=== PATIENT | male | born 1940 | race Caucasian/White ===

== ENCOUNTER 2018-02-12 01:50 | Inpatient (IN) | payer MEDICARE ==
[~2018-02-12] VITALS: Ht 188 cm; Wt 83.9 kg
[~2018-02-12 01:50] MED LIST: ASPIRIN325 MG PO; BRILINTA90 MG PO; CARAFATE1 G PO; FERROUS SULFAT325 MG PO; FLOMAX0.4 MG PO; NITROSTAT0.4 MG SL; NORVASC10 MG PO; PLAVIX75 MG PO; PRAVACHOL20 MG PO; PROTONIX40 MG PO; ZESTORETIC 20-1 EACH PO
[2018-02-12] MEDS ORDERED: FERROUS SULFAT325 MG PO (01:56)
[2018-02-12] MEDS ORDERED: FLUTICASONE PRO16 GM NASAL (01:57)
[2018-02-12] MEDS ORDERED: NIZORAL 2 % CRE15 GM TOPICAL (01:58)
[2018-02-12] MEDS ORDERED: LISINOPRIL-HCTZ1 T11 PO (01:58)
[2018-02-12] MEDS ORDERED: ALAVERT10 MG/TAB PO (01:58)
[2018-02-12 02:42] LABS: BASOPHILS 0.3 % (0-2); EOSINOPHILS 0.8 % (0-7); HEMATOCRIT 34.1 % (42.0-54.0); HEMOGLOBIN 11.3 g/dL (13.5-17.5); IMMATURE GRANULOCYTES 0.2 % (0-5); MCH 28.5 pg (26.0-34.0); MCHC 33.1 g/dL (31.0-37.0); MCV 85.9 fL (80.0-100.0); MEAN PLATELET VOLUME 8.3 fL (7.4-10.4); MONOCYTES 10.2 % (2-11); NEUTROPHILS 69.5 % (40-80); PLATELET COUNT 302 10x3/uL (130-400); RBC 3.97 10x6/uL (4.20-6.10); RDW 15.8 % (11.5-14.5); WBC 6.3 10x3/uL (4.8-10.8)
[2018-02-12 02:54] LABS: INR 0.93 (0.85-1.17); PROTIME 12.1 SECONDS (11.6-15.0)
[2018-02-12 02:56] LABS: ALBUMIN 3.2 g/dL (3.4-5.0); ANION GAP 12.6 mmol/L (8-16); BILIRUBIN - TOTAL 5.62 mg/dL (0.2-1.3); CALCIUM 8.2 mg/dL (8.5-10.1); CARBON DIOXIDE 26.3 mmol/L (21.0-32.0); CREATININE - SERUM 1.1 mg/dL (0.6-1.3); POTASSIUM - SERUM 2.9 mmol/L (3.5-5.1); PROTEIN - SERUM 7.1 g/dL (6.4-8.2)
[2018-02-12] MEDS ORDERED: NORVASC5 MG PO (04:02)
[2018-02-12 04:34] VITALS: BP 115/47; BMI 23.8
[2018-02-12 05:13] VITALS: BP 115/47
[2018-02-12 08:20] VITALS: BP 133/60
[2018-02-12 10:35] LABS: % SATURATION 6 % (15-55); IRON 24 ug/dl (35-150); TOTAL IRON BIND CAPACITY 361 ug/dl (260-445); UNSAT IRON BIND CAPACITY 337 ug/dl (150-375)
[2018-02-12 11:51] VITALS: BP 102/53
[2018-02-12 13:15] VITALS: Ht 188 cm; Wt 83.9 kg
[2018-02-12 15:52] VITALS: BP 101/49
[2018-02-12 20:52] VITALS: BP 125/54
[2018-02-13 04:22] VITALS: BP 154/60
[2018-02-13 05:25] LABS: BASOPHILS 0.4 % (0-2); EOSINOPHILS 1.8 % (0-7); HEMATOCRIT 29.4 % (42.0-54.0); HEMOGLOBIN 9.7 g/dL (13.5-17.5); IMMATURE GRANULOCYTES 0.2 % (0-5); LYMPHOCYTES 20.4 % (15-50); MEAN PLATELET VOLUME 8.9 fL (7.4-10.4); MONOCYTES 10.9 % (2-11); NEUTROPHILS 66.3 % (40-80); PLATELET COUNT 273 10x3/uL (130-400); RBC 3.46 10x6/uL (4.20-6.10); RDW 16.1 % (11.5-14.5); WBC 4.5 10x3/uL (4.8-10.8)
[2018-02-13 05:50] LABS: ALBUMIN 2.4 g/dL (3.4-5.0); ALKALINE PHOSPHATASE 444 U/L (46-116); ALT (SGPT) 709 U/L (10-68); BILIRUBIN - TOTAL 5.13 mg/dL (0.2-1.3); CALC OSMOLALITY 281 mosm/kg (275-300); CALCIUM 7.5 mg/dL (8.5-10.1); CHLORIDE - SERUM 105 mmol/L (98-107); CREATININE - SERUM 0.9 mg/dL (0.6-1.3); GLUCOSE 111 mg/dL (74-106); MAGNESIUM - SERUM 1.8 mg/dL (1.8-2.4); PHOSPHOROUS 2.1 mg/dL (2.5-4.9); POTASSIUM - SERUM 3.4 mmol/L (3.5-5.1); PROTEIN - SERUM 5.8 g/dL (6.4-8.2); SODIUM 139 mmol/L (136-145); UREA NITROGEN 20 mg/dL (7-18); eGFR NON AFRICAN AMERICAN 87 mL/min (90-120)
[2018-02-13 07:28] LABS: HEPATITIS C ANTIBODY <0.1 (0.0-0.9)
[2018-02-13 08:19] LABS: FOLATE (FOLIC ACID) - SERUM >20.0 ng/mL (>3.0)
[2018-02-13 08:48] VITALS: BP 136/60
[2018-02-13 10:20] LABS: CA125 10.8 U/mL (Not Estab.)
[2018-02-13 12:45] VITALS: BP 117/64; BP 125/57
[2018-02-13 16:57] VITALS: BP 131/54
[2018-02-13 20:00] VITALS: BP 93/67
[2018-02-14 01:02] VITALS: BP 112/64
[2018-02-14 05:58] LABS: PHOSPHOROUS 2.6 mg/dL (2.5-4.9); POTASSIUM - SERUM 3.5 mmol/L (3.5-5.1)
[2018-02-14 07:54] LABS: ALBUMIN 2.5 g/dL (3.4-5.0); ALKALINE PHOSPHATASE 485 U/L (46-116); ALT (SGPT) 712 U/L (10-68); BILIRUBIN - TOTAL 5.84 mg/dL (0.2-1.3); CALC OSMOLALITY 278 mosm/kg (275-300); CALCIUM 7.4 mg/dL (8.5-10.1); CARBON DIOXIDE 22.6 mmol/L (21.0-32.0); CHLORIDE - SERUM 104 mmol/L (98-107); CREATININE - SERUM 0.9 mg/dL (0.6-1.3); GLUCOSE 101 mg/dL (74-106); POTASSIUM - SERUM 3.5 mmol/L (3.5-5.1); PROTEIN - SERUM 5.5 g/dL (6.4-8.2); SODIUM 139 mmol/L (136-145); UREA NITROGEN 16 mg/dL (7-18); eGFR NON AFRICAN AMERICAN 87 mL/min (90-120)
[2018-02-14 08:54] VITALS: BP 133/61
[2018-02-14 12:28] VITALS: BP 128/59
[2018-02-14] MEDS ORDERED: ZOFRAN ODT4 MG/UDTAB PO (13:26)
[2018-02-14] MEDS ORDERED: PERCOCET 5-3251 TAB PO (13:31)
[2018-02-18 03:10] LABS: CHENODEOXYCHOLIC ACID 118 umol/L (()); CHOLIC ACID 160 umol/L (()); TOTAL BILE ACIDS 279 umol/L (()); URSODEOXYCHOLIC ACID 1.5 umol/L (())
== END 2018-02-14 15:14 | disposition home or self-care (01) | DRG 437 ==
LOC: D.ER 01:50 → D.EDHOLD 02:21 → D.MS 02:21
PROVIDERS: Family Medicine; Internal Medicine Gastroenterology; Internal Medicine Nephrology
DX: C22.1 Intrahepatic bile duct carcinoma (principal); R91.8 Other nonspecific abnormal finding of lung field; I12.9 Hypertensive chronic kidney disease with stage 1 through stage 4 chronic kidney disease, or unspecified chronic kidney disease; N18.3 Chronic kidney disease, stage 3 (moderate); Z87.891 Personal history of nicotine dependence; E87.6 Hypokalemia; D29.1 Benign neoplasm of prostate; D64.9 Anemia, unspecified; E78.5 Hyperlipidemia, unspecified; Z85.51 Personal history of malignant neoplasm of bladder; R63.0 Anorexia; L29.9 Pruritus, unspecified; Z68.23 Body mass index [BMI] 23.0-23.9, adult

== ENCOUNTER 2018-05-17 17:45 | Observation (INO) | payer MEDICARE ==
[~2018-05-17] VITALS: Ht 188 cm; Wt 61.4 kg
--- NOTE | ~2018-05-17 | MORECARE ---
CASE MANAGEMENT DISCHARGE SUMMARY PATIENT: CHRISTI COSTA V UNIT: [id number] ADM DATE: 05/17/18 AGE: 78 : 39 SEX: M ROOM/BED: D.2120 AUTHOR: KEILA MCCORMICK PHYSICIAN: REFERRING PHYSICIAN: CHLOE FORDE MD DATE OF SERVICE: 05/19/18 Discharge Plan Patient Name: CHRISTI COSTA [facility] [facility] 1940 Planned Disposition: Home Anticipated Discharge Date: 05/18/18 Discharge Date: 05/18/2018 Expected LOS: 1 Initial Reviewer: [email or web address] Initial Review Date: 05/19/2018 Generated: 05/19/18 12:36 pm Patient Name: CHRISTI COSTA Page 70630 at 1136 All edits/amendments must be made on the electronic document DICTATION DATE: 05/19/18 1136 KOSHER DIETARY SERVICE SUPERVISOR: JAYNE 05/19/18 1136 RPT#: [id number] DC DATE:05/18/18 STATUS: DIS IN [facility] [address] [place] [address] END OF REPORT
--- NOTE | ~2018-05-17 | HEMODYNAMI ---
PATIENT:CHRISTI COSTA V MEDICAL RECORD: [id number] : 38 LOCATION:[address] ADMISSION DATE: 05/17/18 Generatedon:05/18/20189:33 Patient name: CHRISTI COSTA Patient #: [id number] SSN: : 1940 Date of study: 05/18/2018 Page: Of Hemodynamic Procedure Report Patient Data Patient Demographics Procedure consent was obtained First Name: CHRISTI Gender: Male Last Name: JULISSA : 1940 [facility] Initial: V Age: 78 year(s) Patient #: [id number] Race: Additional ID: [id number] Contact details Address: [place] [address] State: [place] City: [place] Zip code: [address] Past Medical History Allergies Allergen Reaction Date Comments Reported Other allergy 12/01/2014 penicillin Admission Admission Data Admission Date: 05/17/2018 Admission Time: 19:12 Room #: [facility] Procedure Procedure Types Cath Procedure Diagnostic Procedure [facility] w/Coronaries Sedation Charges Moderate Sedation up to 15 minutes PCI Procedure Coronary Stent Coronary Stent Initial Procedure Description Procedure Date Procedure Date: 05/18/2018 Procedure Start Time: 9:17 Procedure End Time: 9:30 Procedure Staff Name Function Rainer Ratliff MD Performing Physician Aleida Hernandez RT Monitor Breanne Bullard RT Scrub Juliana Rocha RN Nurse Procedure Data Cath Procedure Fluoroscopy Diagnostic fluoroscopy Total fluoroscopy Time: 2.2 time: 2.2 min min Diagnostic fluoroscopy Total fluoroscopy dose: 544 dose: 544 mGy mGy Contrast Material Contrast Material Type Amount (ml) Isovue 300 76 Entry Location Entry Primary Successful Side Size Upsize Upsize Entry Closure Succes sful Closure Location (Fr) 1 (Fr) 2 (Fr) Remarks Device Remarks Femoral Right 5 Fr 6 Fr Exoseal artery Short Estimated blood loss: 5 ml Diagnostic catheters Device Type Used For End Catheter Placement MULTIPACK JL 4.0 5Fr Left Coronary catheter Angiography MULTIPACK 3DRC 5Fr Right Coronary catheter Angiography MULTIPACK Pigtail 5 Fr LV Angiography catheter Procedure Complications No complications Procedure Medications Medication Administration Route Dosage 0.9% NaCl I.V. 100 ml/hr Oxygen etCO2 Nasal cannula 2 l/min Lidocaine 2% added to field 20 Heparin Flush Bag added to field 2 bags (1000units/500ml NS) Versed I.V. 2 mg Fentanyl I.V. 100 mcg Heparin Bolus I.V. 5000 units Integrilin (Bolus I.V. 5.6 ml 2mg/ml) Plavix P.O. 600 mg Versed I.V. 2 mg Hemodynamics Rest Heart Rate: 76 (bpm) Pressure Samples Time Site Value (mmHg) Purpose Heart Use Rate(bpm) 9:22 LV 111/3,12 Snapshot 61 9:23 AO 107/45(62) Pullback 57 9:23 LV 109/9,14 Pullback 57 Gradients Valve Time Site 1 Site 2 Mean SEP/DFP Peak To Heart Use (mmHg) (sec/min) Peak Rate (mmHg) (bpm) Aortic 9:23 LV AO 5 12 2 57 109/9,14 107/45(62) Calculations Valve P-P Mean Valve Index Valve Source Name Gradient Area Flow (cm2) Aortic 2 5 2 5 Snapshots Pre Cath Intra NCS Post Cath Vital Signs Time Heart Resp SPO2 etCO2 NIBP (mmHg) Rhythm Pain Sedation Rate (ipm) (%) (mmHg) Status Level (bpm) 9:00:41 63 22 99 30.9 142/68(102) NSR 0 (11) 10(A) , No pain 9:04:53 64 15 100 33.2 134/70(109) NSR 0 (11) 10(A) , No pain 9:09:13 61 17 100 28.3 132/65(102) NSR 0 (11) 10(A) , No pain 9:13:35 61 15 96 28 119/59(94) NSR 0 (11) 10(A) , No pain 9:17:51 61 11 97 20 117/55(92) NSR 0 (11) 9(A) , No pain 9:22:08 60 12 98 29 112/54(88) NSR 0 (11) 9(A) , No pain 9:26:23 61 13 99 21.3 105/53(82) NSR 0 (11) 10(A) , No pain 9:30:36 60 13 98 24.9 109/55(86) NSR 0 (11) 10(A) , No pain Medications Time Medication Route Dose Verified Delivered Reason Notes Effectiveness by by 9:03:10 0.9% NaCl I.V. 100 Rainer Juliana used for ml/hr [facility] Dandre Rocha procedure MD PRICE 9:03:20 Oxygen etCO2 2 Rainer Juliana used for Nasal l/min [place] Aj procedure cannula MD PRICE 9:03:25 Lidocaine 2% added 20ml Rainer Spear for local to vial [facility] anesthetic field MD [place] 9:03:29 Heparin Flush added 2 Rainer Rainer used for Bag to bags [facility] procedure (1000units/500ml field MD [place] NS) 9:14:57 Versed I.V. 2 mg Rainer Juliana for sedation St Dandre Rocha MD RN 9:15:03 Fentanyl I.V. 100 Rainer Juliana for sedation mcg [facility] Dandre Rocha MD, RN 9:24:29 Heparin Bolus I.V. 5000 Rainer Juliana for verifi ed units [facility] Dandre Rocha anticoagulation with Dr. MD PRICE [place] 9:24:43 Integrilin I.V. 5.6 Rainer Juliana for wasted (Bolus 2mg/ml) ml [facility] Dandre Rocha anticoagulation 4.4mL MD PRICE 9:25:04 Plavix P.O. 600 Rainer Juliana for mg St Dandre Rocha antiplatelet RN therapy 9:27:37 Versed I.V. 2 mg Rainer Juliana for sedation St Dandre Rocha MD, RN Procedure Log Time Note 8:57:13 Informed consent obtained and on chart 8:57:36 Breanne DUDLEY(R) sent for patient. Start room use. 8:57:37 Time tracking: Regular hours (M-F 7:00 - 5:00) 8:57:46 Plan of Care:Hemodynamics will remain stable., Cardiac rhythm will remain stable., Comfort level will be maintained., Respiratory function will remain adequate., Patient/ family verbilizes understanding of procedure., Procedure tolerated without complication., Recovers from procedure without complications.. 8:57:55 Patient received from Med II to [facility] 1 Alert and oriented. Tansferred to table in Supine position. 8:57:56 Warm blankets applied, and deena hugger turned on for patient comfort. 8:57:57 Correct patient and procedure confirmed by team. 8:57:57 ECG and BP/O2 sat monitors applied to patient. 8:59:32 Vital chart was started 8:59:34 Baseline sample Acquired. 8:59:39 Rhythm: sinus rhythm 8:59:41 Full Disclosure recording started 8:59:45 H&P Date Dictated: 05/18/2018 New H&P dictated by physician.. 8:59:47 Pre-procedure instructions explained to patient. 8:59:47 Pre-op teaching completed and patient verbalized understanding. 8:59:51 Family in waiting room. 8:59:52 Patient NPO since Midnight. 8:59:55 Is the patient allergic to Iodine/contrast media? No. 8:59:56 Was the patient premedicated? No 8:59:57 Is patient on blood thinner?No 8:59:58 Patient diabetic? No. 9:00:03 Previous problem with sedation/anesthesia? No ? 9:00:05 Snore? No 9:00:07 Sleep apnea? No 9:00:08 Deviated septum? No 9:00:08 Opens mouth fully? Yes 9:00:10 Sticks out tongue? Yes 9:00:12 Airway obstruction? No ? 9:00:15 Dentures? No ? 9:00:19 Pre procedure: right dorsailis pedis pulse 2+ Normal; easily identifiable; not easily obliterated 9:00:21 Pre procedure: left dorsailis pedis pulse 2+ Normal; easily identifiable; not easily obliterated 9:00:23 Patient pain scale 0/10 ?. 9:00:30 IV patent on arrival in left forearm with 0.9% NaCl at [facility]. 9:00:33 Lab results completed and on chart. 9:00:38 Right groin area was prepped with chlora-prep and draped in sterile fashion 9:00:40 Alarms reviewed by R. N. 9:00:40 Sharps counted by scrub and verified by R.N. 9:03:10 0.9% NaCl 100 ml/hr I.V. was administered by Juliana Rocha RN; used for procedure; 9:03:20 Oxygen 2 l/min etCO2 Nasal cannula was administered by Juliana Rocha RN; used for procedure; 9:03:25 Lidocaine 2% 20ml vial added to field was administered by Rainer Ratliff MD; for local anesthetic; 9:03:29 Heparin Flush Bag (1000units/500ml NS) 2 bags added to field was administered by Rainer Ratliff MD; used for procedure; 9:12:07 Physician arrived 9:12:07 --------ALL STOP TIME OUT------ 9:12:08 Final Timeout: patient, procedure, and site verified with staff and physician. All members of the team are in agreement. 9:12:10 Right groin site verified by team. 9:12:12 Physical assessment completed. ASA score P 2 - A patient with mild systemic disease as per Rainer Ratliff MD. 9:12:16 Sedation plan: IV Moderate Sedation Medication:Versed, Fentanyl 9:13:28 Use device set Femoral Dx 9:13:29 ACIST Syringe (19171) opened to sterile field. 9:13:30 Bag Decanter (2002S) opened to sterile field. 9:13:30 Medline Cath Pack ([id number]) opened to sterile field. 9:13:31 DIAGNOSTIC WIRE .035 260cm J wire (566173) opened to sterile field. 9:13:32 ACIST Hand Control (88858) opened to sterile field. 9:13:32 ACIST Manifold (82324) opened to sterile field. 9:13:33 DIAGNOSTIC Multipack 5Fr catheter set (MS5283) opened to sterile field. 9:13:33 Tegaderm 4 x 4 (1626W) opened to sterile field. 9:13:34 SHEATH 5FR Compton (KHE568) opened to sterile field. 9:14:57 Versed 2 mg I.V. was administered by Juliana Rocha RN; for sedation; 9:15:03 Fentanyl 100 mcg I.V. was administered by Juliana Rocha RN; for sedation; 9:17:01 Procedure started. 9:17:03 Local anesthetic to right femoral artery with Lidocaine 2% by Rainer Ratliff MD.INITIAL ACCESS ONLY 9:17:13 A 5 Fr sheath was inserted into the Right Femoral artery 9:18:54 A MULTIPACK JL 4.0 5Fr catheter was advanced over the wire and used for Left Coronary Angiography. 9:19:12 LCA angiography performed. 9:19:15 Injector settings: Ml/sec: 3, Volume: 6, 9:19:58 Injector settings: Ml/sec: 3, Volume: 6, 9:20:45 Catheter removed. 9:20:49 A MULTIPACK 3DRC 5Fr catheter was advanced over the wire and used for Right Coronary Angiography. 9:21:09 RCA angiography performed. 9:21:16 Injector settings: Ml/sec: 3, Volume: 6, 9:21:24 Catheter removed. 9:21:30 A MULTIPACK Pigtail 5 Fr catheter was advanced over the wire and used for LV Angiography. 9:21:52 SHEATH 6FR Compton (RWH429) opened to sterile field. 9:21:53 WHISPER 300cm guide wire ([id number]) opened to sterile field. 9:21:54 INFLATOR Merit BasixCompak (PD9583) opened to sterile field. 9:21:54 GUIDE 6FR XBLAD 3.5 catheter ([id number]) opened to sterile field. 9:23:13 LV hemodynamics recorded. 9:23:14 LV gram done using MCGEE 9:23:17 Injector settings: Ml/sec: 5, Volume: 15, 9:23:23 EF : 50 % 9:23:25 Catheter removed. 9:23:27 Proceeding to intervention. 9:23:35 Sheath upsized to a 6 Fr Short. 9:23:44 6 Fr xblad 3.5 guide catheter was inserted over the wire 9:23:52 whisper wire advanced. 9:24:29 Heparin Bolus 5000 units I.V. was administered by Juliana Rocha RN; for anticoagulation; verified with Dr. Malcolm 9:24:43 Integrilin (Bolus 2mg/ml) 5.6 ml I.V. was administered by Juliana Rocha RN; for anticoagulation; wasted 4.4mL 9:25:04 Plavix 600 mg P.O. was administered by Juliana Rocha RN; for antiplatelet therapy; 9:25:12 Wire advanced across lesion. 9:27:37 Versed 2 mg I.V. was administered by Juliana Rocha RN; for sedation; 9:28:16 Place stent Inflation Number: 1 A INTEGRITY OTW 3.5 X 9 stent ([id number]) was prepped and advanced across the Prox LAD. The stent was deployed at 14 SUSHMA for 0:30 (min:sec). 9::38 Stent catheter was removed intact over wire. 9::39 Wire removed. 9::39 Guide catheter removed. 9::47 EXOSEAL 6Fr (EX600) opened to sterile field. 9::58 Sheath removed intact; hemostasis achieved with Exoseal to the Right Femoral artery. 9:29:00 Procedure ended.(Physican Out) 9:29:09 Fluoroscopy time 02.20 minutes. 9:: Flurop Dose total: 544 9:: Fluoroscopy dose: 544 mGy 9::30 Contrast amount:Isovue 300 76ml. 9::44 Sharps counted by scrub and verified by R.N. 9:29:45 Insertion/operative site no bleeding no hematoma. 9:29:48 Post-op/insertion site Right Femoral artery dressed using a 4 x 4 and Tegaderm. 9:29:51 Post right femoral artery:stable 9::53 Post Procedure Pulses reassessed and unchanged 9::55 Post procedure rhythm: unchanged. 9::58 Estimated blood loss: 5 ml 9:30:00 Post procedure instruction explained to patient.Patient verbalizes understanding. 9:30:16 Procedure type changed to Cath procedure, Diagnostic procedure, LHC, LHC w/Coronaries, Sedation Charges, Moderate Sedation up to 15 minutes, PCI procedure, Coronary Stent, Coronary Stent Initial 9:30:17 Procedure and supply charges have been captured, reviewed, submitted and are correct. 9:30:22 Procedure Complication : No complications 9:30:25 Vital chart was stopped 9:30:26 See physician's report for complete and final results. 9:30:40 Report given to [facility]. 9:30:42 Patient transfered to [facility] with Stretcher. 9:30:44 Procedure ended. 9:30:44 Full Disclosure recording stopped 9::51 ACC-PCI Only Patient was given prescriptions, or instructed by Rainer Ratliff MD to start/continue the following medications upon discharge: Plavix 9:30:53 End room use (Document Last) Intervention Summary Intervention Notes Time ActionType Lesion and Equipment Action# Pressure Duration Attributes Used 9::16 Place stent Prox LAD INTEGRITY 1 14 00:30 OTW 3.5 X 9 stent ([id number]) Device Usage Item Name Manufacture Quantity Catalog Hospital Part Current Minimal L ot# / Number Charge Number Stock Stock Serial# Code ACIST Acist 1 35305 052410 361477 341948 20 Syringe Medical (05923) Systems Inc Bag Microtek 1 2001S 311199 82414 665829 5 Decanter Medical Inc. () Medline Medline 1 [id number] 458601 94100 897581 5 Cath Pack ([id number]) DIAGNOSTIC [facility] [place] 1 007588 404568 835883 824650 30 WIRE .035 260cm J wire (633764) ACIST Hand Acist 1 85510 212593 361937 667796 5 Control Medical (45527) Systems Inc ACIST Acist 1 91992 691743 760804 458168 5 Manifold Medical (08063) Systems Inc DIAGNOSTIC Cardinal 1 GK8187 341951 70311 692218 30 Multipack Health 5Fr catheter set (SQ4391) Tegaderm 4 3M 1 1626W 793329 827507 934059 5 x 4 (1626W) SHEATH 5FR Terumo 1 NNI622 924018 738805 907574 5 Compton (RVD439) MULTIPACK Cardinal 1 014414 5 JL 4.0 5Fr Health catheter MULTIPACK Cardinal 1 761554 5 3DRC 5Fr Health catheter MULTIPACK Cardinal 1 696729 5 Pigtail 5 Health Fr catheter SHEATH 6FR Terumo 1 OMB066 953972 295861 277311 40 Compton (VBU232) WHISPER Diana 1 [id number] 975518 173249 346937 5 300cm guide Vascular wire (3968424NA) INFLATOR Merit 1 CJ4329 886722 459678 311596 15 Particle Code Medical BasixCompak (QV4948) GUIDE 6FR Cardinal 1 [id number] 565605 919745 398513 10 XBLAD 3.5 Health catheter ([id number]) INTEGRITY Medtronic 1 [id number] 564690 235662 1 0 [id number] OTW 3.5 X 9 stent ([id number]) EXOSEAL 6Fr Cardinal 1 EX600 438918 005722 069878 10 (EX600) Health Signature Audit [place] Stage Time Signature Unsigned Intra-Procedure 05/18/2018 Aleida Hernandez 9:32:58 AM RT(R) Signatures Monitor : Aleida Hernandez RT Signature : Date : Time : [facility] [address] [place] [address]
--- NOTE | ~2018-05-17 | OP ---
PATIENT NAME: CHRISTI COSTA V MEDICAL RECORD: [id number] :38 LOCATION:D.M2 D.2120 ADMISSION DATE:05/17/18 SURGEON: SHAWN MEJIA MD DATE OF OPERATION: 05/18/2018 PROCEDURE: Left heart catheterization, selective coronary angiography, right femoral artery approach. CATHETERS: A 5-Cuban sheath, 5/4 left and right Shellie, 5/4 pig. The procedure was well tolerated. The patient was returned to givens, sheath removed. ExoSeal device placed. FINDINGS: Left ventriculography in 30-degree MCGEE view, mild anteroapical hypokinesis. Overall, however, LV function appears to be at least lower limits of normal at 50%. CORONARY ANATOMY: LEFT MAIN: Left main is free of disease. LAD: Has what appears to be a dissection flap with about 90% luminal encroachment on the previously placed stent. CIRCUMFLEX: Free of disease. RIGHT CORONARY ARTERY: Luminal irregularities, no flow obstructive disease. PLAN: Intervention LAD stenting secondarily momentarily. DESCRIPTION OF PROCEDURE: A 5-Cuban sheath was exchanged for a 6-Cuban sheath. XB LAD guiding catheter provided good guide catheter support followed by a 300 cm Whisper wire across the tightly occluded LAD at the distal portion of the vessel. Stent deployed was a 3.5 x 9 mm Integrity nondrug-eluting stent up to 14 atmospheres for 45 seconds. Final injection shows excellent resolution of 90% stenosis, no significant residual. Nice tacking of the dissection plane. SVETLANA flow was 3 throughout the procedure. Sheath was closed with ExoSeal device. TRANSINT:[id number] Voice Confirmation ID: [id number] DOCUMENT ID: [id number] SHAWN MEJIA MD CC: [id number] DICTATION DATE: 05/18/1835 CODING AUDITOR: 05/18/18 1114 ADM IN [facility] [address] [place] [id number]
--- NOTE | ~2018-05-17 | CN ---
PATIENT NAME:CHRISTI COSTA V MEDICAL RECORD: [id number] : 38 LOCATION:D. D.2120 ADMIT DATE: 05/17/18 ACCOUNT: [id number] CONSULTING PHYSICIAN: SHAWN MEJIA MD REFERRING PHYSICIAN: CHLOE FORDE MD DATE OF CONSULTATION: 05/18/2018 HISTORY OF PRESENT ILLNESS: A 78-year-old gentleman with a history of coronary artery disease, status post intervention, has history of lung carcinoma, currently undergoing chemotherapy, had onset yesterday, classic angina, tightness, pressure, radiating to the jaw, shortness of breath, nausea, found to have NSTEMI, transferred here from [place] for further evaluation. PAST MEDICAL HISTORY: Includes: 1. History of hypertension. 2. Dyslipidemia. 3. Lung carcinoma with metastasis. ALLERGIES: PENICILLIN. MEDICATIONS: Typically include Flomax 0.4 every day, lisinopril 20/12.5 b.i.d., amlodipine 5 every day, aspirin 325 every day. SOCIAL HISTORY: Lives in [place]. Nonsmoker, nondrinker. Takes care of his ADLs with good family support. REVIEW OF SYSTEMS: The patient reports easy bruising but reports no swollen glands. The patient reports no fever, no night sweats, no significant weight gain, no significant weight loss. No significant exercise tolerance. The patient reports no dry eyes, no irritation, no vision change. Patient reports no difficulty hearing and no ear pain. Patient reports no frequent nose bleeds or nose and sinus problems. Patient reports on arm pain on exertion. No shortness of breath while lying down. No history of heart murmur. Patient reports no cough, no wheezing or coughing up blood. Patient reports no abdominal pain, no vomiting. Normal appetite. No diarrhea and not vomiting blood. No nausea and no constipation. Patient reports no incontinence. No difficulty urinating. No hematuria. No increased frequency. Patient reports no muscle aches. No weakness, no arthralgias, no back pain. No swelling of the extremities. Patient reports no abnormal mole, no jaundice, no rashes. Reports no loss of consciousness. No weakness and no numbness. No seizures, dizziness, or headaches. The patient reports no depression, no sleep disturbance, feeling safe in a relationship and no alcohol abuse. Patient reports on fatigue. Reports no runny nose or sinus pressure. No itching, no hives, and no frequent sneezing. PHYSICAL EXAMINATION: GENERAL: Pleasant gentleman in no acute distress. VITAL SIGNS: Blood pressure 109/49, pulse 57 and regular. HEENT: Normocephalic, atraumatic. NECK: No bruits are noted. HEART: Regular. LUNGS: Lung garcia are clear. Prolonged expiratory phase. ABDOMEN: Soft, nontender. EXTREMITIES: Pulses 1+. There is no edema. CONSULT REPORT [id number] CHRISTI COSTA V DIAGNOSTIC DATA: ECG without acute change. IMPRESSION: NSTEMI. PLAN: For angiography, intervention based on the above. TRANSINT:[id number] Voice Confirmation ID: [id number] DOCUMENT ID: [id number] SHAWN MEJIA MD CC: [id number] DICTATION DATE: 05/18/18902 RAKE OPERATOR: 05/18/18 1012 ADM IN [facility] [address] [place] [address]
[~2018-05-17 17:45] MED LIST changes: +ALAVERT10 MG/TAB PO; +FLUTICASONE PRO16 GM NASAL; +LISINOPRIL-HCTZ1 T11 PO; +NIZORAL 2 % CRE15 GM TOPICAL; +NORVASC5 MG PO; +PERCOCET 5-3251 TAB PO; +ZOFRAN ODT4 MG/UDTAB PO
[2018-05-17 18:59] LABS: BASOPHILS 0.3 % (0-2); EOSINOPHILS 0.1 % (0-7); HEMATOCRIT 28.4 % (42.0-54.0); HEMOGLOBIN 8.7 g/dL (13.5-17.5); IMMATURE GRANULOCYTES 0.1 % (0-5); LYMPHOCYTES 16.6 % (15-50); MCH 24.4 pg (26.0-34.0); MCHC 30.6 g/dL (31.0-37.0); MCV 79.8 fL (80.0-100.0); MEAN PLATELET VOLUME 8.6 fL (7.4-10.4); MONOCYTES 1.3 % (2-11); NEUTROPHILS 81.6 % (40-80); PLATELET COUNT 251 10x3/uL (130-400); RBC 3.56 10x6/uL (4.20-6.10); RDW 16.8 % (11.5-14.5); WBC 6.8 10x3/uL (4.8-10.8)
[2018-05-17 19:28] LABS: CALC OSMOLALITY 273 mosm/kg (275-300); CALCIUM 8.1 mg/dL (8.5-10.1); CARBON DIOXIDE 31.8 mmol/L (21.0-32.0); CHLORIDE - SERUM 98 mmol/L (98-107); CKMB 4.9 U/L (0.0-3.6); CREATINE KINASE 70 UL (21-232); CREATININE - SERUM 0.9 mg/dL (0.6-1.3); GLUCOSE 108 mg/dL (74-106); POTASSIUM - SERUM 3.9 mmol/L (3.5-5.1); SODIUM 135 mmol/L (136-145); UREA NITROGEN 22 mg/dL (7-18); eGFR NON AFRICAN AMERICAN 86 mL/min (90-120)
[2018-05-17 19:32] LABS: TROPONIN-I 1.444 ng/mL (0.000-0.060)
[2018-05-17 21:53] VITALS: BP 132/59
[2018-05-18] VITALS: BP 103/57
[2018-05-18 03:09] VITALS: BP 132/89; Ht 188 cm; Wt 61.4 kg
[2018-05-18 04:38] LABS: BASOPHILS 0.5 % (0-2); EOSINOPHILS 2.6 % (0-7); HEMATOCRIT 27.2 % (42.0-54.0); HEMOGLOBIN 8.3 g/dL (13.5-17.5); LYMPHOCYTES 25.5 % (15-50); MCH 24.1 pg (26.0-34.0); MCHC 30.5 g/dL (31.0-37.0); MCV 79.1 fL (80.0-100.0); MEAN PLATELET VOLUME 9.2 fL (7.4-10.4); MONOCYTES 1.5 % (2-11); NEUTROPHILS 69.9 % (40-80); PLATELET COUNT 277 10x3/uL (130-400); RBC 3.44 10x6/uL (4.20-6.10); RDW 17.1 % (11.5-14.5)
[2018-05-18 04:49] LABS: INR 1.11 (0.85-1.17); PROTIME 13.8 SECONDS (11.6-15.0); WBC 3.9 10x3/uL (4.8-10.8)
[2018-05-18 05:18] LABS: CALC OSMOLALITY 281 mosm/kg (275-300); CALCIUM 7.9 mg/dL (8.5-10.1); CHLORIDE - SERUM 103 mmol/L (98-107); CREATININE - SERUM 0.8 mg/dL (0.6-1.3); GLUCOSE 102 mg/dL (74-106); POTASSIUM - SERUM 3.7 mmol/L (3.5-5.1); SODIUM 139 mmol/L (136-145); UREA NITROGEN 23 mg/dL (7-18); eGFR NON AFRICAN AMERICAN > 90 mL/min (90-120)
[2018-05-18 05:33] LABS: TROPONIN-I 4.436 ng/mL (0.000-0.060)
[2018-05-18 05:37] VITALS: BP 109/49
[2018-05-18] MEDS ORDERED: OXYCODONE-APAP1 TAB PO (10:49)
[2018-05-18] MEDS ORDERED: PLAVIX75 MG PO (15:23)
== END 2018-05-18 17:54 | disposition home or self-care (01) ==
LOC: D.ER 17:45 → D.EDHOLD 19:12 → OBSVTIME 19:12 → D.M2 19:13
PROVIDERS: Family Medicine
DX: I21.4 Non-ST elevation (NSTEMI) myocardial infarction (principal); I25.10 Atherosclerotic heart disease of native coronary artery without angina pectoris; G89.29 Other chronic pain; I10 Essential (primary) hypertension; E78.5 Hyperlipidemia, unspecified; C34.90 Malignant neoplasm of unspecified part of unspecified bronchus or lung

== ENCOUNTER 2018-07-10 16:37 | Emergency (ER) | payer MEDICARE ==
[~2018-07-10] VITALS: Ht 188 cm; Wt 79.5 kg
[~2018-07-10 16:37] MED LIST changes: +OXYCODONE-APAP1 TAB PO
[2018-07-10 16:40] VITALS: BP 105/67; Ht 188 cm; Wt 79.5 kg
== END 2018-07-10 20:00 ==
LOC: D.ER 16:37
DX: I21.3 ST elevation (STEMI) myocardial infarction of unspecified site (principal)